=== PATIENT | female | born 1960 | race Caucasian/White ===

== ENCOUNTER 2023-03-29 13:20 | Emergency (ER) | payer MEDICARE, SELFPAY ==
[2023-03-29 13:28] VITALS: BP 131/65; PULSE 82; RESP 20; TEMP 36.6; O2SAT 94
--- NOTE | 2023-03-29 13:44 | ED.SKABFB ---
HPI - Skin/Abscess/Foreign Bdy General Chief complaint: Skin/Abscess/Foreign Body Stated complaint: bump on right side of head History of Present Illness HPI narrative: patient presents with an area 3cm round to top of left scalp. patient states she was running through trees and forest yesterday chasing her dog and thinks she ran into a tree branch. no drainage and no streaking to area. Related Data Home Medications Medication Instructions Recorded Confirmed Lactobacillus acidophilus 100 mmu cells PO DAILY 03/29/23 03/29/23 amlodipine 5 mg tablet 5 mg PO DAILY 03/29/23 03/29/23 calcium carbonate 600 mg-vitamin 1 tablet PO DAILY 03/29/23 03/29/23 D3 20 mcg (800 unit) chewable tablet (Caltrate 600 plus D) cetirizine 10 mg tablet (Zyrtec) 10 mg PO DAILY 03/29/23 03/29/23 coenzyme Q10 10 mg capsule (Co 10 mg PO ONCE 03/29/23 03/29/23 Q-10) diclofenac potassium 50 mg tablet 50 mg PO BID 03/29/23 03/29/23 fluoxetine 40 mg capsule 40 mg PO DAILY 03/29/23 03/29/23 gabapentin 300 mg tablet 300 mg PO TID 03/29/23 03/29/23 indapamide 2.5 mg tablet 2.5 mg PO DAILY 03/29/23 03/29/23 rosuvastatin 20 mg tablet 20 mg PO DAILY 03/29/23 03/29/23 tramadol 50 mg tablet 100 mg PO QID PRN Pain 03/29/23 03/29/23 Allergies Allergy/AdvReac Type Severity Reaction Status Date / Time morphine Allergy Severe Anaphylactic Verified 03/29/23 13:33 Shock Sulfa (Sulfonamide Allergy Unknown sob, Verified 03/29/23 13:33 Antibiotics) blisters Review of Systems Review of Systems: CONSTITUTIONAL: Denies fever, chills, or sweats. EYES: Denies visual changes, redness, or discharge. ENT: Denies rhinorrhea, congestion, sore throat, or otalgia. CARDIOVASCULAR: Denies chest pain, palpitations, or edema. RESPIRATORY: Denies cough or dyspnea. GASTROINTESTINAL: Denies abdominal pain, nausea, vomiting, or diarrhea. GENITOURINARY: Denies dysuria or hematuria. SKIN: Denies rash or itching. MUSCULOSKELETAL: Denies back pain, joint pain, or myalgia. NEUROLOGIC: Denies headache, numbness, or weakness. PSYCHIATRIC: Denies anxiety or depression. PMFSH Comments At time of signature, agree with nursing past medical, surgical, social and family history. There is no relevant family history pertinent to the presenting complaint Exam Narrative: GENERAL: Well-appearing, well-nourished, and in no acute distress. HEAD: Normocephalic, atraumatic. EYES: PERRLA and EOMI. ENT: Nares clear, no rhinorrhea or epistaxis. Mucous membranes moist. NECK: Supple. CHEST: Clear to auscultation. No respiratory distress. HEART: Regular rate and rhythm. No murmur heard. Normal peripheral pulses. ABDOMEN: Soft, nontender, nondistended, normal active bowel sounds. EXTREMITIES: Normal range of motion. No edema. SKIN: Warm, dry, no rash. tender area to top of left scalp consistent with developing abscess no fluctuance and no induration 3 cm circular area to scalp no drainage no streaking NEURO: No focal deficits. Alert and oriented x3. [place] Coma Scale Eye Opening: Spontaneous 4 [place] Coma Scale Motor: Obeys Commands 6 [place] Coma Scale Verbal: Oriented 5 [place] Coma Scale Total 15 Course Course Level of Care: Express Care Visit Vital Signs Vital signs: Vital Signs Temperature 36.6 C 03/29/23 13:28 Pulse Rate 82 03/29/23 13:28 Respiratory Rate 20 03/29/23 13:28 Blood Pressure 131/65 03/29/23 13:28 Pulse Oximetry 94 03/29/23 13:28 Oxygen Delivery Room Air 03/29/23 13:28 Temperature 36.6 C 03/29/23 13:28 Pulse Rate 82 03/29/23 13:28 Respiratory Rate 20 03/29/23 13:28 Blood Pressure 131/65 03/29/23 13:28 Pulse Oximetry 94 03/29/23 13:28 Oxygen Delivery Room Air 03/29/23 13:28 Please CATARINA schedule a followup visit with your personal physician for further evaluation and treatment. Including recheck and discussion of your blood pressure. If your symptoms persist, change or worsen significantly before you can co
[2023-03-29 13:48] VITALS: BP 131/65; PULSE 82; RESP 20; TEMP 36.6; O2SAT 94
== END 2023-03-29 14:01 | disposition home or self-care (01) ==
PROVIDERS: Emergency Provider Nurse Practitioner Family; PCP Internal Medicine
DX: L02.811 Cutaneous abscess of head [any part, except face] (principal); E78.00 Pure hypercholesterolemia, unspecified; I10 Essential (primary) hypertension
CPT/HCPCS: 99203; G0463